=== PATIENT | male | born 1995 | race Caucasian/White ===

== ENCOUNTER 2016-05-02 10:18 | Observation (INO) ==
--- NOTE | 2016-05-02 10:35 | Emergency Department Note ---
Disposition Clinical Impression: Acute appendicitis Qualifiers: Acute appendicitis type: with localized peritonitis Qualified Code(s): K35.3 - Acute appendicitis with localized peritonitis Disposition: Admitted As Inpatient Condition: Fair Referrals: NO,PCP [Primary Care Provider] - Forms: Work/School Release, ED Satisfaction Letter Abdominal Pain HPI - General Chief Complaint: ED Abdominal Pain Stated Complaint: RLQ Pain Time Seen by Provider: 05/02/16 10:30 Source: patient Mode of arrival: ambulatory Limitations: no limitations Nursing Notes Reviewed: Yes Vital Signs Reviewed: Yes - History of Present Illness HPI Narrative: Mr. Crabtree is a 20 year old male that presents with abdominal pain beginning yesterday. Patient states pain began yesterday at lunch, and was mild throughout the evening. He states pain and localized to the right lower quadrant when he woke this morning and was more severe. Patient states he has not eaten today and went to work, however due to pain with movement presented to the ED. Patient denies any fever, nausea, vomiting, diarrhea, or constipation. She states she has not been to the doctor in many years denies any medical history any surgical history. Denies any tobacco use, alcohol use, illicit drug use. Pt Subjective Complaint: abdominal pain Onset (ago): day(s) (Yesterday) Consistency: constant, Worsening Location: RLQ Pain Severity: moderate Pain Scale: 4 Quality: dull Radiation: none Migration to: no migration Improves with: nothing Worsens with: movement Associated symptoms: Reports: denies other symptoms Treatments prior to arrival: none - Related Data Previous Rx's Medication Instructions Recorded Amoxicillin/Clavulanate [Augmentin] 875 mg PO BID #20 tablet 05/13/15 Allergies Allergy/AdvReac Type Severity Reaction Status Date / Time Sulfa (Sulfonamide Allergy Rash Verified 05/13/15 16:41 Antibiotics) All systems ED: reviewed and negative except as stated. Constitutional: Denies: fever, chills, weakness Eyes: Denies: vision change ENT ED: Denies: hearing loss Cardiovascular: Denies: chest pain Respiratory: Denies: cough, dyspnea Gastrointestinal: Reports: as per HPI, abdominal pain. Denies: nausea, vomiting , diarrhea, constipation, hematemesis, melena Genitourinary: Denies: urgency, dysuria, frequency, hematuria, testicular pain Neurological: Denies: headache, weakness Endocrine: Denies: fatigue Hematological/Lymphatic: Denies: easy bleeding Abdominal Pain PMH - Past Medical History Medical history: Reports: non-contributory (seasonal allergies) Male Surgical History: Reports: no surgical history Psychiatric history: Reports: no psych history - Social History Smoking status: Never smoker Alcohol use: Reports: none Drug use: Reports: none Physical Exam - General Limitations: no limitations General appearance: alert, in no apparent distress - Head Head exam: atraumatic, normocephalic - Eye Eye exam: Present: normal appearance, PERRL, EOMI - ENT ENT exam: normal exam, normal oropharynx, mucous membranes moist, normal external ear exam - Neck Neck exam: Present: normal inspection, full ROM, trachea midline. Absent: lymphadenopathy - Chest Chest inspection: Present: normal inspection, symmetric chest wall rise - Respiratory Respiratory exam: Present: normal lung sounds bilaterally - Cardiovascular Cardiovascular exam: Present: regular rate, +S1, +S2 - Abdominal Exam Abdominal exam: Present: soft, normal bowel sounds, tenderness at McBurney's Point. Absent: distention, guarding, rebound, rigidity, Rovsing's sign, ascites , mass, bruit Abdominal tenderness: Present: RLQ, moderate - Extremities Exam Extremities exam: Present: normal inspection, full ROM - Back Exam Back exam: Present: normal inspection. Absent: tenderness, CVA tenderness (R), CVA tenderness (L) - Neurological Exam Neurological exam: Present: alert, oriented X3, CN II-XII intact - Psychiatric Psychiatric exam: Present: normal affect, normal mood - Skin Skin exam: Present: warm, dry, intact, normal color Course Vital Signs Temperature 97.4 F L 05/02/16 10:21 Pulse Rate 90 05/02/16 10:21 Respiratory Rate 18 05/02/16 10:21 Blood Pressure 147/89 05/02/16 10:21 O2 Sat by Pulse Oximetry 100 05/02/16 10:21 Temperature 98.9 F 05/02/16 18:45 Pulse Rate 75 05/02/16 18:45 Respiratory Rate 75 05/02/16 18:45 Blood Pressure 130/80 05/02/16 18:45 O2 Sat by Pulse Oximetry 95 05/02/16 18:45 Oxygen Delivery Oxygen Delivery Room Air Abdominal Pain - Differential Diagnosis Differential Diagnosis: Likely: abdominal pain non-specific, acute appendicitis , constipation, colonic obstruction, diverticulitis - Medical Records Medical records reviewed: Yes I reviewed the patient's medical records. - Lab Data Lab results reviewed: Yes I reviewed the patient's lab results. Result diagrams: 05/02/16 11:26 05/02/16 11:26 Lab Results 05/02/16 05/02/16 05/02/16 Range/Units 10:55 11:26 11:26 WBC 8.6 (4.3-11.1) K/mcL RBC 5.60 H (4.19-5.50) M/mcL Hgb 16.1 (12.9-16.9) g/dL Hct 44.8 (37.5-50.1) % MCV 80.0 L (83.0-100.0) fL MCH 28.8 (28.0-33.3) pg MCHC 35.9 H (31.6-35.5) g/dL RDW 12.3 (11.5-14.5) % Plt Count 238 (140-400) K/mcL MPV 9.5 (9.4-12.4) fL Immature Gran % 0.2 (0-4) % Seg Neutrophils % 67.1 % Lymphocytes % 22.1 % Monocytes % 9.0 % Eosinophils % 1.3 % Basophils % 0.3 % Neutrophils # 5.8 (1.6-8.9) K/mcL Lymphocytes # 1.9 (0.6-4.6) K/mcL Monocytes # 0.8 (0.0-1.3) K/mcL Eosinophils # 0.1 (0.0-0.6) K/mcL Basophils # 0.0 (0.0-0.2) K/mcL Sodium 138 (136-145) mEq/L Potassium 4.3 (3.5-4.5) mEq/L Chloride 105 (98-109) mEq/L Carbon Dioxide 27 (19-29) mEq/L BUN 12 (8-26) mg/dL Creatinine 1.07 (0.72-1.25) mg/dL Est GFR ( Amer) > 60 (> 60) Est GFR (Non-Af Amer) > 60 (> 60) BUN/Creatinine Ratio 11 (6-26) Glucose 86 (70-99) mg/dL Calculated Osmolality 285 (280-300) Calcium 9.4 (8.6-10.8) mg/dL Total Bilirubin 0.9 (0.2-1.2) mg/dL Direct Bilirubin 0.3 (0.0-0.5) mg/dL Indirect Bilirubin 0.6 (0.0-1.2) mg/dL AST 25 (5-34) Units/L ALT 18 (0-55) Units/L Alkaline Phosphatase 97 (38-126) Units/L Serum Total Protein 7.9 (6.0-8.3) g/dL Albumin 4.4 (3.5-5.0) g/dL Globulin 3.5 (2.4-3.5) g/dL Albumin/Globulin Ratio 1.3 (1.1-2.2) Amylase 45 (25-125) Units/L Lipase 30 (8-78) Units/L Urine Color Yellow (Yellow) Urine Clarity Clear (Clear) Urine pH 6.0 (5.0-8.0) pH Units Ur Specific [place] 1.026 H (1.010-1.025) Urine Protein Negative (Neg-Trace) mg/dL Urine Glucose (UA) Normal (Normal) mg/dL Urine Ketones Negative (Negative) mg/dL Urine Blood Negative (Negative) Urine Nitrite Negative (Negative) Urine Bilirubin Negative (Negative) Urine Urobilinogen Normal (Normal) mg/dL Ur Leukocyte Esterase Negative (Negative) Ur Culture Indicated? NO (NO) - Radiology Data Radiology results reviewed: Yes I reviewed the patient's radiology results. Attestation Statement - Attestation Attestation: I examined this patient and my medical decision-making was reviewed with the ELECTRICAL SYSTEMS DESIGNER/PA/Advanced Practice Nurse/Resident Physician. I agree with the documented findings, disposition and treatment plan as described except to the extent set forth below. I examined the patient myself he had migratory right lower quadrant pain from last night and this morning had pain with movement. On exam he had moderate tenderness with voluntary guarding in the right lower quadrant surgery was consult to Dr. Patterson assumed care for appendectomy
[2016-05-02 11:18] LABS: Bilirubin,Urine Negative (Negative); Blood,Urine Negative (Negative); Clarity,Urine Clear (Clear); Color,Urine Yellow (Yellow); Glucose,Urine (UA) Normal (Normal); Ketones,Urine Negative (Negative); Leukocyte Esterase,Urine Negative (Negative); Nitrite,Urine Negative (Negative); Protein,Urine Negative (Neg-Trace); Specific Gravity,Urine 1.026 (1.010-1.025); Urobilinogen,Urine Normal (Normal)
[2016-05-02 11:34] LABS: Basophils % 0.3 %; Eosinophils # 0.1 K/mcL (0.0-0.6); Eosinophils % 1.3 %; Hematocrit 44.8 % (37.5-50.1); Hemoglobin 16.1 g/dL (12.9-16.9); Immature Granulocytes % 0.2 % (0-4); Lymphocytes # 1.9 K/mcL (0.6-4.6); Lymphocytes % 22.1 %; Mean Corpuscular HGB Conc 35.9 g/dL (31.6-35.5); Mean Corpuscular Hemoglobin 28.8 pg (28.0-33.3); Mean Platelet Volume 9.5 fL (9.4-12.4); Monocytes # 0.8 K/mcL (0.0-1.3); Neutrophils # 5.8 K/mcL (1.6-8.9); Platelet Count 238 K/mcL (140-400); Red Cell Distribution Width 12.3 % (11.5-14.5); Segmented Neutrophils % 67.1 %
[2016-05-02 11:52] LABS: Alanine Aminotransferase 18 Units/L (0-55); Albumin 4.4 g/dL (3.5-5.0); Albumin/Globulin Ratio 1.3 (1.1-2.2); Alkaline Phosphatase 97 Units/L (38-126); Amylase 45 Units/L (25-125); Aspartate Amino Transferase 25 Units/L (5-34); BUN/Creatinine Ratio 11 (6-26); Bilirubin,Direct 0.3 mg/dL (0.0-0.5); Bilirubin,Indirect 0.6 mg/dL (0.0-1.2); Bilirubin,Total 0.9 mg/dL (0.2-1.2); Blood Urea Nitrogen 12 mg/dL (8-26); Calcium 9.4 mg/dL (8.6-10.8); Carbon Dioxide 27 mEq/L (19-29); Chloride 105 mEq/L (98-109); Globulin 3.5 g/dL (2.4-3.5); Glucose 86 mg/dL (70-99); Lipase 30 Units/L (8-78); Osmolality,Calculated 285 (280-300); Potassium 4.3 mEq/L (3.5-4.5); Sodium 138 mEq/L (136-145); Total Protein 7.9 g/dL (6.0-8.3); eGFR For African Americans > 60 (> 60); eGFR For Non-African Americans > 60 (> 60)
--- NOTE | 2016-05-02 16:03 | General Surg History&Physical ---
Date of Encounter: 05/02/16 Time of Encounter: 16:01 Assessment and Plan (1) Appendicitis Current Visit: Yes Status: Acute The assessment and plan as outlined above was discussed with the patient and/or family members who expressed understanding and agreement. All questions were answered. Plan for laparoscopic appendectomy. Risks, benefits, and expected outcomes and the patient agrees to proceed. Qualifiers: Acute appendicitis type: with localized peritonitis Qualified Code(s): K35.3 - Acute appendicitis with localized peritonitis History of Present Illness HPI: Mr. Crabtree is a 20 year old male with 24 hours of right lower quadrant abdominal pain. The pain became much more intense this morning. He finally presented to the emergency department for evaluation. He states he does have an appetite. He denies any current fevers. He denies any difficult urination. He states she has never had anything like this in the past. Past Med Surg Social Fam HX - Past Medical History Medical history: non-contributory (seasonal allergies) Psychiatric history: no psych history - Social History Smoking Status: Never smoker Smokeless Tobacco Status: No Alcohol use: none Drug use: none Medications and Allergies Amoxicillin/Clavulanate [Augmentin] 875 mg PO BID #20 tablet 05/13/15 [Rx] Allergies Sulfa (Sulfonamide Antibiotics) Allergy (Verified 05/13/15 16:41) Rash Review of Systems All systems PM: A 10-system review of systems was performed and is negative for pertinent findings except as documented above in the HPI. General Surgery Exam Initial Vital Signs Temp Pulse Resp BP Pulse Ox 97.4 F L 90 18 147/89 100 05/02/16 10:21 05/02/16 10:21 05/02/16 10:21 05/02/16 10:21 05/02/16 10:21 - Eyes PERRL, normal ocular movement - Neck no bruits, trachea midline - Respiratory normal respiratory effort - Cardiovascular Cardiovascular exam: Present: regular rhythm - Abdomen Abdomen general surgery: Present: bowel sounds present Abdominal Tenderness: Present: RLQ - Integumentary Integumentary general surgery: Present: warm and dry, no abnormal pigmentation - Psychiatric Psychiatric general surgery: Present: A&Ox3, appropriate, speech is normal Results - Labs 05/02/16 11:26 05/02/16 11:26 Abnormal lab results RBC 5.60 M/mcL (4.19-5.50) H 05/02/16 11:26 MCV 80.0 fL (83.0-100.0) L 05/02/16 11:26 MCHC 35.9 g/dL (31.6-35.5) H 05/02/16 11:26 Ur Specific [place] 1.026 (1.010-1.025) H 05/02/16 10:55 Diabetes panel 05/02/16 Range/Units 11:26 Sodium 138 (136-145) mEq/L Potassium 4.3 (3.5-4.5) mEq/L Chloride 105 (98-109) mEq/L Carbon Dioxide 27 (19-29) mEq/L BUN 12 (8-26) mg/dL Creatinine 1.07 (0.72-1.25) mg/dL Glucose 86 (70-99) mg/dL Calcium 9.4 (8.6-10.8) mg/dL AST 25 (5-34) Units/L ALT 18 (0-55) Units/L Alkaline Phosphatase 97 (38-126) Units/L Albumin 4.4 (3.5-5.0) g/dL Calcium panel 05/02/16 Range/Units 11:26 Calcium 9.4 (8.6-10.8) mg/dL Albumin 4.4 (3.5-5.0) g/dL Pituitary panel 05/02/16 Range/Units 11:26 Sodium 138 (136-145) mEq/L Potassium 4.3 (3.5-4.5) mEq/L Chloride 105 (98-109) mEq/L Carbon Dioxide 27 (19-29) mEq/L BUN 12 (8-26) mg/dL Creatinine 1.07 (0.72-1.25) mg/dL Glucose 86 (70-99) mg/dL Calcium 9.4 (8.6-10.8) mg/dL Adrenal panel 05/02/16 Range/Units 11:26 Sodium 138 (136-145) mEq/L Potassium 4.3 (3.5-4.5) mEq/L Chloride 105 (98-109) mEq/L Carbon Dioxide 27 (19-29) mEq/L BUN 12 (8-26) mg/dL Creatinine 1.07 (0.72-1.25) mg/dL Glucose 86 (70-99) mg/dL Calcium 9.4 (8.6-10.8) mg/dL Total Bilirubin 0.9 (0.2-1.2) mg/dL AST 25 (5-34) Units/L ALT 18 (0-55) Units/L Alkaline Phosphatase 97 (38-126) Units/L Albumin 4.4 (3.5-5.0) g/dL All other labs normal.
--- NOTE | 2016-05-02 16:42 | Anesthesia Evaluation PreOp ---
Date of Encounter: 05/02/16 Time of Encounter: 16:40 - Past History Planned Operation: Lap Appendectomy Cardiac History: Denies any Significant Hx Pulmonary History: Denies Any Significant HX OFFICE SWEEPER History: Denies Any Significant HX Other Medical History: Denies Any Significant HX Anesthesia History: No Prior Anesthetic Complications Alcohol Use: none Drug use: none Medications and Allergies Amoxicillin/Clavulanate [Augmentin] 875 mg PO BID #20 tablet 05/13/15 [Rx] Allergies Sulfa (Sulfonamide Antibiotics) Allergy (Verified 05/13/15 16:41) Rash - Meds/Allergy Pre-op Review Medications Reviewed: Yes Allergies Reviewed: Yes Anesthesia Results - Labs 05/02/16 11:26 05/02/16 11:26 Anesthesia Exam O2 Sat Height 1.91 m Weight 104.326 kg O2 Sat by Pulse Oximetry 97 O2 Sat by Pulse Oximetry 100 O2 Sat by Pulse Oximetry 100 Vital Signs Temp Pulse Resp BP Pulse Ox 97.4 F L 90 18 147/89 100 05/02/16 10:21 05/02/16 10:21 05/02/16 10:21 05/02/16 10:21 05/02/16 10:21 Height: 6'3 Weight: 230 lbs NPO (# of Hours): MN Pain Scale: 0 - HEENT Pupil (Motor): Pupils equal, EOMI Mallampati: II Teeth: Normal Oral Opening: Greater than 3 - OFFICE SWEEPER LOC: Oriented OFFICE SWEEPER Motor: Normal RUE, Normal LUE, Normal RLE, Normal LLE, Normal Face OFFICE SWEEPER Sensory: Normal: RUE, LUE, RLE, LLE, Face - Cardiac Rhythm: Regular Murmur: None JVD: No Carotid Bruit: No - Pulmonary Breath Sounds: bilateral Clear Respiratory Effort: Symmetrical Anesthesia Assess/Plan ASA Score: 1, E Modified [place] Scale for Level of Consciousness: Cooperative, oriented, and tranquil Anesthetic Plan: General Monitoring Plan: Standard Monitors Recovery Plan: PACU (Discussed GA, agrees to proceed)
[2016-05-02] MEDS ORDERED: *HR* Midazolam HCl 2 MG/2 ML VIAL ONE (16:52)
--- NOTE | 2016-05-02 17:22 | Operative Note ---
Date of procedure: 05/02/16 Pre-op diagnosis: Appendicitis Post-op diagnosis: same Procedure: Laparoscopic appendectomy Anesthesia: ZHOU Surgeon: Herbie Patterson Specimen: appendix Condition: stable Disposition: same day Procedure in Detail: After informed consent, patient was taken to the operating room placed in supine position. After adequate sedation anesthesia the abdomen was prepped and draped. A 12 mm cannula was placed in the umbilicus. A 5 mm cannulas placed in suprapubic region and the left lower quadrant. Camera was inserted and the abdomen after a pneumoperitoneum. 2 Charlie graspers were used to identify the base of the appendix. A appendiceal window was created. A VEE endoscopic stapler was placed across the base. A vascular load was placed across the mesoappendix. Once the appendix was was placed in an Endobag and removed through the umbilicus. There was a inflamed/necrotic colonic epiploica. I believe this was likely the source of his pain. It too was removed with electrocautery. It was retrieved through the 12 mm cannula. Both the epiploica and the appendix was sent to pathology. The right lower quadrant was suctioned dry no bleeding was identified. Remainder the pneumoperitoneum was evacuated. The umbilicus was closed with an 0 Vicryl suture in [id number] fashion. Skin was closed with 4-0 Vicryl suture and Dermabond.
[2016-05-02] MEDS ORDERED: *HR* FentaNYL (PF) 100 MCG/2 ML VIAL ONE (17:40)
[2016-05-02] MEDS ORDERED: *HR* Propofol 200 MG/20 ML VIAL IVP ONE (17:40)
[2016-05-02] MEDS ORDERED: *HR* Rocuronium Bromide 50 MG/5 ML VIAL ONE (18:27)
[2016-05-02] MEDS ORDERED: Ondansetron 4 MG/2 ML VIAL ONE (18:27)
[2016-05-02] MEDS ORDERED: Neostigmine Methylsulfate 3 MG/3 ML SYRINGE ONE (18:27)
[2016-05-02] MEDS ORDERED: Dexamethasone 4 MG/ML VIAL ONE (18:27)
[2016-05-02] MEDS ORDERED: *HR* HYDROmorphone 2 MG/ML SYRINGE ONE (18:31)
[2016-05-02] MEDS ORDERED: *HR* HYDROmorphone (PF) 1 MG/ML SYRINGE ONE (18:57)
[2016-05-02] MEDS: *HR* HYDROmorphone 2 MG/ML SYRINGE IVP PRN ×2 (18:58→19:06)
--- NOTE | 2016-05-02 19:18 | Anesthesia Evaluation Post Op ---
Date of Encounter: 05/02/16 Time of Encounter: 19:15 - Vital Signs Vital Signs: Vital Signs/O2 Sat/Glucose, Most Current Temp Pulse Resp BP Pulse Ox 05/02/16 19:05 64 16 121/68 96 05/02/16 18:55 66 16 126/84 95 05/02/16 18:45 98.9 F 75 16 130/80 95 05/02/16 16:12 18 126/87 05/02/16 15:35 78 18 121/73 97 - Lungs Lungs: Clear Ascult./Percussion - Airway Airway: Non-obstructed - Cardiovascular Regular Rate - Mental Status Mental Status: Alert & Oriented, Answers Appropriately - Pain Pain Scale: 0 - Nausea Vomiting Nausea Vomiting: Not Present - Hydration Hydration: NPO - Discharge PostOp Status: Transfer Patient to floor
[2016-05-02] MEDS ORDERED: 0.9 % Sodium Chloride 1,000 ML IVC SCH (19:56)
[2016-05-02] MEDS ORDERED: *HR* Promethazine 25 MG/ML VIAL IVP PRN (19:56)
[2016-05-02] MEDS ORDERED: Ondansetron 4 MG/2 ML VIAL IVP PRN (19:56)
[2016-05-02] MEDS ORDERED: *HR* HYDROmorphone (PF) 1 MG/ML SYRINGE IVP PRN (19:56)
[2016-05-02] MEDS: *HR* OxyCODONE/APAP 5/325 TABLET PO PRN (21:34)
[2016-05-03] MEDS: *HR* OxyCODONE/APAP 5/325 TABLET PO PRN ×2 (04:01→10:37)
[2016-05-03 07:10] VITALS: BP 122/77
--- NOTE | 2016-05-03 10:16 | Discharge Summary ---
Outpatient Proc Discharge Plan - Plan Additional Instructions: Patient may shower today. Patient may have a regular diet today. Patient should avoid driving for next 10 days. Patient may return to normal activities as he feels fit. He may return to work when he feels able to perform his duties. Prescriptions: HYDROcodone/Acet 5/325 mg [[place] 5-325 mg] 1 tab PO Q6H PRN #30 tab PRN Reason: Pain Home Medications: Loratadine [Allergy Relief] 10 mg PO DAILY PRN 05/02/16 [History] HYDROcodone/Acet 5/325 mg [[place] 5-325 mg] 1 tab PO Q6H PRN #30 tab 05/03/16 [Rx ]
--- NOTE | 2016-05-03 10:18 | General Surgery Progress Note ---
Date of Encounter: 05/03/16 Time of Encounter: 10:18 - Assessment and Plan (1) Appendicitis Current Visit: Yes Status: Acute Plan to discharge patient home today. Qualifiers: Acute appendicitis type: with localized peritonitis Qualified Code(s): K35.3 - Acute appendicitis with localized peritonitis Subjective Patient reports: feels better Objective Vital Signs - Last 8 Hours Temp Pulse Resp BP Pulse Ox 05/03/16 07:06 97.5 F L 78 18 122/77 95 05/03/16 03:57 97.7 F 50 16 125/77 95 Intake and Output 05/02/16 05/03/16 05/03/16 23:59 07:59 15:59 Intake Total 0 / 0 500 / 500 Output Total 0 / 0 Balance 0 / 0 500 / 500 Intake: Oral 0 / 0 500 / 500 Output: Urine 0 / 0 Other: # Voids 0 1 Weight 104.6 kg 105.8 kg Patient Weight 05/03/16 23:59 Weight 105.8 kg - General physical appearance well developed, well nourished - Abdomen Abdomen: Present: bowel sounds present, soft - Incision Incision: Present: clean and dry - Labs 05/02/16 11:26 05/02/16 11:26 Consult Discharge Plan - Plan Additional Instructions: Patient may shower today. Patient may have a regular diet today. Patient should avoid driving for next 10 days. Patient may return to normal activities as he feels fit. He may return to work when he feels able to perform his duties. Referrals: NO,PCP [Primary Care Provider] - Prescriptions: HYDROcodone/Acet 5/325 mg [[place] 5-325 mg] 1 tab PO Q6H PRN #30 tab PRN Reason: Pain
== END 2016-05-03 12:00 | disposition home or self-care (01) ==
LOC: 2NENU 10:18 → EMEROO 10:18 → 2NENU 16:12 → EMEROO 16:17
PROVIDERS: ADMIT Surgery; ATTEND Surgery